=== PATIENT | male | born 1980 | race Caucasian/White ===

== ENCOUNTER 2018-02-24 08:27 | Day surgery (SDC) | payer OTHER ==
[2018-02-19 14:50] VITALS: BMI 30.7
[~2018-02-24 08:27] MED LIST: LACTATED RINGERS 1,000 ML IV SCH; LIDOCAINE 1% 20 ML VIAL (10MG/ML) FOR IV START INTRADERMA PRN
[2018-02-24 08:51] VITALS: TEMP 97.6
[2018-02-24] MEDS ORDERED: PROPOFOL 10 MG/ML 20 ML VIAL IV ONE (09:08)
[2018-02-24] MEDS ORDERED: LIDOCAINE 1% INJ 10MG/ML (20 ML MDV) ONE (09:08)
--- NOTE | 2018-02-24 09:13 | P.GSHP ---
History of Present Illness H&P Date: 02/24/18 Chief Complaint: Hemorrhoids This is a 38-year-old male presents today for Losee. Patient issues with hemorrhoids and anal pain. Past Medical History Past Medical History: Fibromyalgia, GERD/Reflux, Hypertension Additional Past Medical History / Comment(s): back pain, hemorrhoids History of Any Multi-Drug Resistant Organisms: None Reported Past Surgical History: Orthopedic Surgery Additional Past Surgical History / Comment(s): rt arm surgery Past Anesthesia/Blood Transfusion Reactions: No Reported Reaction Smoking Status: Current every day smoker - Past Family History Father Family Medical History: Coronary Artery Disease (CAD) Additional Family Medical History / Comment(s): triple bypass Medications and Allergies Home Medications Medication Instructions Recorded Confirmed Type DULoxetine HCL [Cymbalta] 60 mg PO DAILY 07/10/15 02/24/18 History Naproxen 500 mg PO Q12HR 07/10/15 02/24/18 History Pregabalin [Lyrica] 300 mg PO BID 07/10/15 02/24/18 History ARIPiprazole [Abilify] 5 mg PO DAILY 02/19/18 02/24/18 History Aspirin [Adult Low Dose Aspirin EC] 81 mg PO DAILY 02/19/18 02/24/18 History HYDROcodone/APAP 10-325MG [[place] 1 tab PO BID 02/19/18 02/24/18 History 10-325] Hydrochlorothiazide [Hydrodiuril] 25 mg PO DAILY 02/19/18 02/24/18 History Allergies Allergy/AdvReac Type Severity Reaction Status Date / Time No Known Allergies Allergy Verified 02/24/18 08:50 Surgical - Exam Vital Signs Temp Pulse Resp BP Pulse Ox 97.6 F 100 16 136/89 97 02/24/18 08:50 02/24/18 08:50 02/24/18 08:50 02/24/18 08:50 02/24/18 08:50 - General well developed, well nourished, no distress - Eyes PERRL - ENT normal pinna - Neck no masses - Respiratory normal expansion - Cardiovascular Rhythm: regular - Abdomen Abdomen: soft, non tender - Rectum Hemorrhoids Assessment and Plan Assessment: History of pain. Hemorrhoids. We'll perform colonoscopy.
--- NOTE | 2018-02-24 09:28 | P.OP ---
Date of Procedure: 02/24/18 Preoperative Diagnosis: Hemorrhoids Postoperative Diagnosis: Mild external hemorrhoids Sigmoid colon inflammation Diverticulosis Procedure(s) Performed: Colonoscopy Anesthesia: MAC Surgeon: Shalom Godfrey Pathology: other (Sigmoid colon biopsy) Condition: stable Disposition: PACU Description of Procedure: The patient was placed on the endoscopy table in the lateral position. He received IV sedation. Digital rectal exam was performed which revealed mild internal hemorrhoids. The flexible colonoscope was then placed patient anus passed throughout the entire colon. The ileocecal valve was visualized. The cecum, ascending and transverse colon appeared normal. In the descending colon was a few scattered diverticula. In the sigmoid colon there was more diverticula seen. There is evidence of submucosal phonation. This area is biopsied. Scope was then brought back the rectum and this appeared normal. Scope was withdrawn through the anus and there is minimal internal hemorrhoids. Scope was withdrawn for patient..
[2018-02-24 10:02] VITALS: BP 134/81; PULSE 88; RESP 16
== END 2018-02-24 10:10 | disposition home or self-care (01) ==
LOC: ORWHC2ENDO 08:27
PROVIDERS: ATTEND Surgery
DX: K64.4 Residual hemorrhoidal skin tags (principal); K64.8 Other hemorrhoids; K57.30 Diverticulosis of large intestine without perforation or abscess without bleeding; M79.7 Fibromyalgia; K21.9 Gastro-esophageal reflux disease without esophagitis; I10 Essential (primary) hypertension; Z79.1 Long term (current) use of non-steroidal anti-inflammatories (NSAID); Z79.82 Long term (current) use of aspirin; Z79.891 Long term (current) use of opiate analgesic; Z79.899 Other long term (current) drug therapy; F17.210 Nicotine dependence, cigarettes, uncomplicated
CPT/HCPCS: 88305; 45380; J2001; J2704

== ENCOUNTER 2019-05-20 11:52 | Day surgery (SDC) | payer OTHER ==
[2019-05-17 15:00] VITALS: BMI 30.7
[~2019-05-20 11:52] MED LIST changes: -LIDOCAINE 1% 20 ML VIAL (10MG/ML) FOR IV START INTRADERMA PRN
[2019-05-20] MEDS ORDERED: LIDOCAINE 1% 20 ML VIAL (10MG/ML) FOR IV START INTRADERMA ONE (12:15)
[2019-05-20 12:27] VITALS: RESP 16; TEMP 97.4
[2019-05-20] MEDS ORDERED: PROPOFOL 10 MG/ML 20 ML VIAL IV ONE (12:44)
[2019-05-20] MEDS ORDERED: LIDOCAINE 1% INJ 10MG/ML (20 ML MDV) ONE (12:44)
--- NOTE | 2019-05-20 13:02 | P.GSHP ---
History of Present Illness H&P Date: 05/20/19 Chief Complaint: . GERD GI bleed Is a 39-year-old male who presents today for EGD colonoscopy. Patient's had issues with GERD and GI bleed. Past Medical History Past Medical History: GERD/Reflux, Hyperlipidemia, Hypertension, Osteoarthritis (OA), Pneumonia Additional Past Medical History / Comment(s): hemorrhoids, recent blood in stool, diverticulitis, degenerative disks, scoliosis, History of Any Multi-Drug Resistant Organisms: None Reported Past Surgical History: Orthopedic Surgery Additional Past Surgical History / Comment(s): colonoscopy, rt shoulder surgery to remove bone spur, Past Anesthesia/Blood Transfusion Reactions: No Reported Reaction Smoking Status: Current every day smoker - Past Family History Father Family Medical History: Coronary Artery Disease (CAD) Additional Family Medical History / Comment(s): triple bypass Mother Family Medical History: No Reported History Medications and Allergies Home Medications Medication Instructions Recorded Confirmed Type DULoxetine HCL [Cymbalta] 60 mg PO W/SUPPER 07/10/15 05/17/19 History Naproxen 500 mg PO Q12HR 07/10/15 05/17/19 History ARIPiprazole [Abilify] 5 mg PO W/SUPPER 02/19/18 05/17/19 History Aspirin [Adult Low Dose Aspirin EC] 81 mg PO HS 02/19/18 05/17/19 History HYDROcodone/APAP 10-325MG [[place] 1 tab PO Q6HR PRN 02/19/18 05/17/19 History 10-325] Hydrochlorothiazide [Hydrodiuril] 25 mg PO DAILY 02/19/18 05/17/19 History Atorvastatin [Lipitor] 40 mg PO HS 05/17/19 05/17/19 History Calcium Carbonate [Tums] 500 mg PO DIRECTED PRN 05/17/19 05/17/19 History amLODIPine [Norvasc] 5 mg PO HS 05/17/19 05/17/19 History Allergies Allergy/AdvReac Type Severity Reaction Status Date / Time No Known Allergies Allergy Verified 05/17/19 14:46 Surgical - Exam Vital Signs Temp Pulse Resp BP Pulse Ox 97.4 F L 96 16 145/89 97 05/20/19 12:26 05/20/19 12:26 05/20/19 12:05/20/19 12:05/20/19 12:26 - General well developed - Eyes PERRL - ENT normal pinna - Neck no masses - Respiratory normal expansion - Cardiovascular Rhythm: regular - Abdomen Abdomen: soft, non tender Assessment and Plan Assessment: GERD, GI bleed. We'll perform EGD
--- NOTE | 2019-05-20 13:05 | P.OP ---
Date of Procedure: 05/20/19 Preoperative Diagnosis: GERD GI bleed Postoperative Diagnosis: Antral gastritis Esophagitis Internal hemorrhoids Procedure(s) Performed: EGD Colonoscopy Anesthesia: MAC Surgeon: Shalom Godfrey Pathology: other (Antrum, esophagus) Condition: stable Disposition: PACU Description of Procedure: The patient's placed on the endoscopy table. He received IV sedation. The gastric was placed oropharynx passed in the esophagus and into the stomach. Scope was then placed through the pylorus. The first and second portion of the duodenum appeared normal. Scope was then brought back and this appeared mildly inflamed. A biopsies performed. The scope was then retroflexed and the remainder some appeared normal. The GE junction was at 47 is. There was no significant hiatal hernia. The distal esophagus appeared inflamed. A biopsies performed. The proximal esophagus appeared normal. The scope was then withdrawn from patient. Next digital rectal exam was performed which revealed internal hemorrhoids. Flexible colonoscope was then placed patient anus passed rotator colon. The ileocecal valve was incised. The cecum, ascending and transverse colon appeared normal. The descending and sigmoid colon appeared normal. The scope was then brought back the rectum this appeared normal. Scope Patient.
[2019-05-20 13:17] VITALS: BP 136/89; PULSE 81
== END 2019-05-20 13:40 | disposition home or self-care (01) ==
LOC: ORWHC2ENDO 11:52
PROVIDERS: ATTEND Surgery
DX: K21.0 Gastro-esophageal reflux disease with esophagitis (principal); K29.50 Unspecified chronic gastritis without bleeding; K64.8 Other hemorrhoids; F31.9 Bipolar disorder, unspecified; J42 Unspecified chronic bronchitis; E78.5 Hyperlipidemia, unspecified; M19.90 Unspecified osteoarthritis, unspecified site; K64.4 Residual hemorrhoidal skin tags; I10 Essential (primary) hypertension; M51.36 Other intervertebral disc degeneration, lumbar region; E66.9 Obesity, unspecified; K05.6 Periodontal disease, unspecified; E78.00 Pure hypercholesterolemia, unspecified; M54.30 Sciatica, unspecified side; F17.210 Nicotine dependence, cigarettes, uncomplicated; Z79.2 Long term (current) use of antibiotics; Z79.899 Other long term (current) drug therapy; Z87.01 Personal history of pneumonia (recurrent); Z82.49 Family history of ischemic heart disease and other diseases of the circulatory system; Z79.82 Long term (current) use of aspirin; Z79.1 Long term (current) use of non-steroidal anti-inflammatories (NSAID); Z68.29 Body mass index [BMI] 29.0-29.9, adult
CPT/HCPCS: 88305; 45378; 43239; J2001; J2704

== ENCOUNTER → 2019-06-02 | Outpatient (CLI) | payer OTHER | END | disposition home or self-care (01) | LOC: LABPAT 14:37 | PROVIDERS: ATTEND Surgery | DX: Z01.818 Encounter for other preprocedural examination (principal); K21.0 Gastro-esophageal reflux disease with esophagitis | CPT/HCPCS: 36415; 85025; 86850; 86900; 86901 ==

== ENCOUNTER → 2019-08-01 | Outpatient (CLI) | payer OTHER | END | disposition home or self-care (01) | LOC: LABWHC1 08:39 | PROVIDERS: ATTEND Surgery | DX: U07.1 COVID-19 (principal) | CPT/HCPCS: 87635 ==

== ENCOUNTER → 2019-08-22 | Outpatient (CLI) | payer OTHER | END | disposition home or self-care (01) | LOC: LABWHC1 11:51 | PROVIDERS: ATTEND Surgery | DX: Z11.59 Encounter for screening for other viral diseases (principal) ==

== ENCOUNTER 2019-08-24 08:10 | Inpatient (IN) | payer OTHER ==
[~2019-08-24 08:10] MED LIST changes: +DEXAMETHASONE SOD PHOSPHATE 10 MG/ML 1 ML VIAL IV ONE; +HYDROmorphone 0.5 MG/0.5 ML SYRINGE IVP PRN; -LACTATED RINGERS 1,000 ML IV SCH; +LIDOCAINE 1% (10MG/ML) FOR IV START INTRADERMA PRN
[2019-08-24] MEDS: LACTATED RINGERS 1,000 ML IV SCH (09:05)
[2019-08-24] MEDS: ONDANSETRON 4 MG/2 ML VIAL IVP ONE ×2 (09:08→13:36)
[2019-08-24] MEDS: HEPARIN SODIUM,PORCINE 5,000 UNIT/ML 1 ML VIAL SQ ONE ×2 (09:18→13:36)
--- NOTE | 2019-08-24 09:22 | P.GSHP ---
History of Present Illness H&P Date: 08/24/19 Chief Complaint: GERD This a 39-year-old male referred from [facility].The patient has had long-standing problems with reflux esophagitis. The patient underwent recent EGD is found have evidence of esophagitis. Patient has been well informed on the procedure of laparoscopic Holden fundoplication. The patient is aware the risk of the conversion to the open procedure, risk of injury to the stomach, david er and spleen. The patient is also a risk of recurrent GERD and dysphagia symptoms. The patient understands there is a postoperative diet of full liquids for 2 weeks after surgery. Past Medical History Past Medical History: GERD/Reflux, Hyperlipidemia, Hypertension, Osteoarthritis (OA), Pneumonia Additional Past Medical History / Comment(s): hx hemorrhoids, occasional blood in stool, diverticulitis, degenerative disks, scoliosis, History of Any Multi-Drug Resistant Organisms: None Reported Past Surgical History: Orthopedic Surgery Additional Past Surgical History / Comment(s): colonoscopy,EGD, rt shoulder surgery to remove bone spur, Past Anesthesia/Blood Transfusion Reactions: No Reported Reaction Smoking Status: Current every day smoker - Past Family History Father Family Medical History: Coronary Artery Disease (CAD) Additional Family Medical History / Comment(s): triple bypass Mother Family Medical History: No Reported History Medications and Allergies Home Medications Medication Instructions Recorded Confirmed Type DULoxetine HCL [Cymbalta] 60 mg PO W/SUPPER 07/10/15 08/24/19 History Naproxen 500 mg PO Q12HR 07/10/15 08/24/19 History ARIPiprazole [Abilify] 5 mg PO W/SUPPER 02/19/18 08/24/19 History Aspirin [Adult Low Dose Aspirin EC] 81 mg PO HS 02/19/18 08/24/19 History HYDROcodone/APAP 10-325MG [[place] 1 tab PO Q6HR PRN 02/19/18 08/24/19 History 10-325] Hydrochlorothiazide [Hydrodiuril] 25 mg PO QAM 02/19/18 08/24/19 History Atorvastatin [Lipitor] 40 mg PO HS 05/17/19 08/24/19 History Calcium Carbonate [Tums] 500 mg PO DIRECTED PRN 05/17/19 08/24/19 History amLODIPine [Norvasc] 5 mg PO HS 05/17/19 08/24/19 History Cyclobenzaprine [Flexeril] 10 mg PO HS 08/22/19 08/24/19 History Varenicline [Chantix Continuing 1 mg PO BID 08/22/19 08/24/19 History Pack] Allergies Allergy/AdvReac Type Severity Reaction Status Date / Time No Known Allergies Allergy Verified 08/24/19 08:37 Surgical - Exam Vital Signs Temp Pulse Resp BP Pulse Ox 97.9 F 102 H 16 162/105 99 08/24/19 08:31 08/24/19 08:31 08/24/19 08:31 08/24/19 08:31 08/24/19 08:31 - General well developed, well nourished, no distress - Eyes PERRL - ENT normal pinna - Neck no masses - Respiratory normal expansion - Cardiovascular Rhythm: regular - Abdomen Abdomen: soft, non tender Results - Labs 08/24/19 08:55 Diabetes panel 08/24/19 Range/Units 08:55 Potassium 4.3 (3.5-5.1) mmol/L Pituitary panel 08/24/19 Range/Units 08:55 Potassium 4.3 (3.5-5.1) mmol/L Adrenal panel 08/24/19 Range/Units 08:55 Potassium 4.3 (3.5-5.1) mmol/L Assessment and Plan Assessment: GERD. We'll perform laparoscopic Holden fundoplication.
[2019-08-24] MEDS ORDERED: NEOSTIGMINE 1 MG/ML 10 ML VIAL ONE (09:50)
[2019-08-24] MEDS ORDERED: GLYCOPYRROLATE 0.2 MG/ML 2 ML VIAL ONE (09:50)
[2019-08-24] MEDS ORDERED: fentaNYL (PF) 50 MCG/ML 2 ML AMP ONE (09:50)
[2019-08-24] MEDS ORDERED: SUCCINYLCHOLINE CHLORIDE 100 MG/5 ML SYR IV ONE (09:50)
[2019-08-24] MEDS ORDERED: MIDAZOLAM 2 MG/2 ML VIAL ONE (09:50)
[2019-08-24] MEDS ORDERED: HYDROmorphone (PF) 1 MG/ML ONE (09:50)
[2019-08-24] MEDS ORDERED: KETOROLAC 30 MG/ML 1 ML VIAL ONE (09:50)
[2019-08-24] MEDS ORDERED: LIDOCAINE 1% INJ 10MG/ML (20 ML MDV) ONE (09:50)
[2019-08-24] MEDS ORDERED: ROCURONIUM BROMIDE 10 MG/ML 5 ML VIAL IV ONE (09:50)
[2019-08-24] MEDS ORDERED: PROPOFOL 10 MG/ML 20 ML VIAL IV ONE (09:50)
[2019-08-24] MEDS ORDERED: LIDOCAINE 1%/EPI 1:200,000 MPF 10 ML VIAL SQ ONE ×2 (10:10)
[2019-08-24] MEDS ORDERED: ONDANSETRON 4 MG/2 ML VIAL IVP PRN (11:03)
--- NOTE | 2019-08-24 11:03 | P.OP ---
Date of Procedure: 08/24/19 Preoperative Diagnosis: GERD Postoperative Diagnosis: GERD Procedure(s) Performed: Laparoscopic Holden fundal plication Anesthesia: LUIS CARLOS Surgeon: Shalom Godfrey Estimated Blood Loss (ml): 5 Pathology: none sent Condition: stable Disposition: PACU Description of Procedure: HarThe patient was placed on the operating table in the supine position. The patient received general anesthesia. And was placed in dorsal lithotomy position. The patient was prepped and draped in the usual sterile fashion. The skin incision sites were anesthetized with 1% local Xylocaine. The skin was incised in the left periumbilical area and then using a blade less 5 mm trocar u nder direct visualization panel cavity was entered. After adequate insufflation the laparoscope was then placed into the peritoneal cavity. Next a 5 mm trochars placed in the right epigastric position. Another 5 millimeter trocar the right lateral position. Another 5 millimeter trocar in the left lateral position a 5 mm trocar is placed in the left epigastric position. And then the initial 5 mm trocar was exchanged for a 10 mm trocar. The left lateral lobe liver was retracted. The hernia was seen. The crural defect was then dissected using the Harmonic scissors device. A 360 crural dissection was performed the esophagus stomach was reduced back into the peritoneal Cavity. The crural defect was then closed using 2-0 Ethibond suture. Next the fundus of the stomach was mobilized using the Cecil scissors device. and then a 58-Tunisian bougie dilator was placed oropharynx passed into the esophagus and stomach the fundal plication wrap was then performed by grasping the fundus posteriorly and bringing it around the esophagus and stomach fundoplication was then performed using 2-0 Ethibond suture. Care was taken that the fundal location rested over top of the intra-abdominal esophagus. There was no injury seen to the stomach or esophagus. The dilator was then withdrawn. The abdomen was irrigated there is no bleeding seen. The trochars were then withdrawn and then skin incision sites were closed using 3-0 Monocryl suture Steri-Strips are applied. Patient thought procedure well and sent to recovery room in stable condition.
[2019-08-24] MEDS: METOCLOPRAMIDE 5 MG/ML 2 ML VIAL IVP SCH ×3 (13:57→23:14)
[2019-08-24] MEDS: HYDROmorphone 1 MG/ML 1 ML SYRINGE IVP PRN (14:01)
[2019-08-24] MEDS: D5-0.45% NACL WITH KCL 20MEQ/L 1,000 ML IV SCH ×2 (14:19→20:35)
--- NOTE | 2019-08-24 15:04 | FL ---
EXAMINATION TYPE: FL esophagus cervic/pharynx DATE OF EXAM: 08/24/2019 LIMITED UGI-ESOPHAGRAM: CLINICAL HISTORY: History of epigastric pain reflux per patient status post Rick fundoplication rodriguez rgery earlier today. TECHNIQUE: Limited esophagram is performed utilizing 20 oz of contrast. A total of 29 seconds of flu oroscopic time was utilized during procedure. Change spot images saved to PACS. FINDINGS: The patient swallowed contrast without difficulty or delay. Esophageal peristalsis and mo tility are within normal limits. There is initial satisfactory flow of contrast along the diaphragmat ic hiatus into the stomach, there is no evidence of contrast extravasation to suggest leak. No persis tent hiatal hernia is seen. Some contrast remains in distal esophagus with some distal reflux noted t owards the mid aspect of the esophagus. Patient however remains asymptomatic. IMPRESSION: No evidence of leak or significant obstruction status post Rick fundoplication surgery earlier today.
[2019-08-24] MEDS: FAMOTIDINE 20 MG/2 ML VIAL IV SCH (20:08)
[2019-08-25] MEDS: D5-0.45% NACL WITH KCL 20MEQ/L 1,000 ML IV SCH (04:33)
[2019-08-25] MEDS: LACTATED RINGERS 1,000 ML IV SCH (04:53)
[2019-08-25] MEDS: METOCLOPRAMIDE 5 MG/ML 2 ML VIAL IVP SCH (04:58)
[2019-08-25] MEDS: HYDROmorphone 1 MG/ML 1 ML SYRINGE IVP PRN (04:58)
[2019-08-25] MEDS: FAMOTIDINE 20 MG/2 ML VIAL IV SCH (06:53)
[2019-08-25 07:40] VITALS: BP 135/94; PULSE 115; RESP 17; TEMP 97.5
[2019-08-25] MEDS ORDERED: HYDROcodone/APAP 10-325MG 1 EACH TAB PO PRN (07:58)
[2019-08-25] MEDS ORDERED: ENOXAPARIN 40 MG/0.4 ML SYRINGE SQ SCH (09:00)
--- NOTE | 2019-08-25 12:24 | P.DS ---
Providers Date of admission: 08/24/19 08:10 Expected date of discharge: 08/25/19 Attending physician: Shalom Godfrey [facility] Course: 39-year-old male who underwent laparoscopic Holden fundoplication with Dr. Godfrey secondary to GERD. Patient did well postoperatively without any complications. Tolerating diet without nausea or vomiting. Pain is controlled on oral medications. Vital signs are stable. Patient stable for discharge home today. Please see EMR for further hospital course details. Discharge diagnosis 1. GERD, status post laparoscopic Holden fundoplication Nurse practitioner note has been reviewed by physician. Signing provider agrees with the documented findings, assessment, and plan of care. Plan - Discharge Summary Discharge Rx Participant: Yes New Discharge Prescriptions: Continue HYDROcodone/APAP 10-325MG [[place] 10-325] 1 tab PO Q6HR PRN PRN Reason: Pain No Action Naproxen 500 mg PO Q12HR DULoxetine HCL [Cymbalta] 60 mg PO W/SUPPER Hydrochlorothiazide [Hydrodiuril] 25 mg PO QAM ARIPiprazole [Abilify] 5 mg PO W/SUPPER Aspirin [Adult Low Dose Aspirin EC] 81 mg PO HS amLODIPine [Norvasc] 5 mg PO HS Atorvastatin [Lipitor] 40 mg PO HS Calcium Carbonate [Tums] 500 mg PO DIRECTED PRN PRN Reason: Heartburn Varenicline [Chantix Continuing Pack] 1 mg PO BID Cyclobenzaprine [Flexeril] 10 mg PO HS Discharge Medication List DULoxetine HCL [Cymbalta] 60 mg PO W/SUPPER 07/10/15 [History] Naproxen 500 mg PO Q12HR 07/10/15 [History] ARIPiprazole [Abilify] 5 mg PO W/SUPPER 02/19/18 [History] Aspirin [Adult Low Dose Aspirin EC] 81 mg PO HS 02/19/18 [History] HYDROcodone/APAP 10-325MG [[place] 10-325] 1 tab PO Q6HR PRN 02/19/18 [History] Hydrochlorothiazide [Hydrodiuril] 25 mg PO QAM 02/19/18 [History] Atorvastatin [Lipitor] 40 mg PO HS 05/17/19 [History] Calcium Carbonate [Tums] 500 mg PO DIRECTED PRN 05/17/19 [History] amLODIPine [Norvasc] 5 mg PO HS 05/17/19 [History] Cyclobenzaprine [Flexeril] 10 mg PO HS 08/22/19 [History] Varenicline [Chantix Continuing Pack] 1 mg PO BID 08/22/19 [History] Follow up Appointment(s)/Referral(s): Shalom Godfrey MD [STAFF PHYSICIAN] - 09/08/19 1:15 pm Patient Instructions/Handouts: *Surgery [facility] - ([facility]) Lap Holden Fundiplication Post-Op Instructions Activity/Diet/Wound Care/Special Instructions: No driving while taking [place] No lifting over 10 pounds You may shower. No soaking or tub baths Very light activity until you are reevaluated at your follow up appointment with your surgeon No straws or carbonated beverages Full liquid/soft diet for 2 weeks Discharge Disposition: HOME SELF-CARE
== END 2019-08-25 10:40 | disposition home or self-care (01) | DRG 328 ==
LOC: 2ORMAIN 08:10 → 4SSUR 13:32
PROVIDERS: ADMIT Surgery; ATTEND Surgery
PROC: 0BQT4ZZ Repair Diaphragm, Percutaneous Endoscopic Approach (ICD-10-PCS; 2019-08-24)
PROC: 0DV44ZZ Restriction of Esophagogastric Junction, Percutaneous Endoscopic Approach (ICD-10-PCS; principal; 2019-08-24 09:10)
DX: K21.0 Gastro-esophageal reflux disease with esophagitis (principal); K44.9 Diaphragmatic hernia without obstruction or gangrene; I10 Essential (primary) hypertension; E78.5 Hyperlipidemia, unspecified; M19.90 Unspecified osteoarthritis, unspecified site; M41.9 Scoliosis, unspecified; M51.36 Other intervertebral disc degeneration, lumbar region; F17.210 Nicotine dependence, cigarettes, uncomplicated; Z79.899 Other long term (current) drug therapy; Z79.82 Long term (current) use of aspirin; Z87.19 Personal history of other diseases of the digestive system; Z87.01 Personal history of pneumonia (recurrent); Z98.890 Other specified postprocedural states; Z82.49 Family history of ischemic heart disease and other diseases of the circulatory system
CPT/HCPCS: 74210; 84132

== ENCOUNTER → 2020-09-20 | Outpatient (CLI) | payer OTHER | END | disposition home or self-care (01) | LOC: LABPAT 10:55 | PROVIDERS: ATTEND Surgery | DX: Z53.9 Procedure and treatment not carried out, unspecified reason (principal) ==

== ENCOUNTER 2020-09-26 06:27 | Day surgery (SDC) | payer OTHER ==
[2020-09-21 10:44] VITALS: BMI 29.4
[~2020-09-26 06:27] MED LIST changes: +ACETAMINOPHEN TAB 500 MG TAB PO PRN; -DEXAMETHASONE SOD PHOSPHATE 10 MG/ML 1 ML VIAL IV ONE; +HEPARIN SODIUM,PORCINE/PF 5,000 UNIT/0.5 ML SYRINGE SQ PRN; -HYDROmorphone 0.5 MG/0.5 ML SYRINGE IVP PRN; +LACTATED RINGERS 1,000 ML IV SCH
[2020-09-26] MEDS ORDERED: ONDANSETRON 4 MG/2 ML VIAL IVP ONE (07:00)
[2020-09-26] MEDS ORDERED: DEXAMETHASONE SOD PHOSPHATE 4 MG/ML 1 ML VIAL IV ONE (07:00)
[2020-09-26] MEDS ORDERED: MIDAZOLAM 2 MG/2 ML VIAL IV ONE (07:28)
[2020-09-26] MEDS ORDERED: SUCCINYLCHOLINE CHLORIDE 100 MG/5 ML SYR IV ONE (07:54)
[2020-09-26] MEDS ORDERED: fentaNYL (PF) 50 MCG/ML 2 ML AMP ONE (07:54)
[2020-09-26] MEDS ORDERED: PROPOFOL 10 MG/ML 20 ML VIAL IV ONE (07:54)
[2020-09-26] MEDS ORDERED: ROPIVACAINE 5 MG/ML 30 ML VIAL ONE (07:54)
[2020-09-26] MEDS ORDERED: hydrALAZINE HCL 20 MG/ML 1 ML VIAL ONE (07:54)
[2020-09-26] MEDS ORDERED: HYDROmorphone (PF) 1 MG/ML ONE (07:54)
[2020-09-26] MEDS ORDERED: DEXAMETHASONE SOD PHOSPHATE 4 MG/ML 1 ML VIAL ONE (07:54)
[2020-09-26] MEDS ORDERED: GLYCOPYRROLATE 0.2 MG/ML 2 ML VIAL ONE (07:54)
[2020-09-26] MEDS ORDERED: NEOSTIGMINE 1 MG/ML 10 ML VIAL ONE (07:54)
[2020-09-26] MEDS ORDERED: ROCURONIUM 10 MG/ML (5 ML VIAL) IV ONE (07:54)
[2020-09-26] MEDS ORDERED: LIDOCAINE 1% INJ 10MG/ML (20 ML MDV) ONE (07:54)
[2020-09-26] MEDS ORDERED: KETAMINE 10 MG/ML 20 ML VIAL ONE (07:54)
[2020-09-26] MEDS ORDERED: MIDAZOLAM 2 MG/2 ML VIAL ONE (07:54)
[2020-09-26] MEDS ORDERED: KETOROLAC 15 MG/ML 1 ML VIAL ONE (07:54)
--- NOTE | 2020-09-26 08:00 | P.GSHP ---
History of Present Illness H&P Date: 09/26/20 Chief Complaint: Umbilical hernia This a 40-year-old male who presents today for laparoscopic robotic-assisted repair of umbilical hernia. Patient developed a tender mass in the umbilicus. Past Medical History Past Medical History: Hyperlipidemia, Hypertension, Osteoarthritis (OA), Pneumonia Additional Past Medical History / Comment(s): hemorrhoids, diverticulitis, degenerative disks, scoliosis History of Any Multi-Drug Resistant Organisms: None Reported Past Surgical History: Hernia Repair, Orthopedic Surgery Additional Past Surgical History / Comment(s): rt shoulder surgery to remove bone spur, Holden Fundoplication. fully vaccinated for Covid Past Anesthesia/Blood Transfusion Reactions: No Reported Reaction Smoking Status: Current every day smoker - Past Family History Father Family Medical History: Coronary Artery Disease (CAD) Additional Family Medical History / Comment(s): triple bypass Mother Family Medical History: Coronary Artery Disease (CAD) Medications and Allergies Home Medications Medication Instructions Recorded Confirmed Type DULoxetine HCL [Cymbalta] 60 mg PO W/SUPPER 07/10/15 09/26/20 History ARIPiprazole [Abilify] 5 mg PO W/SUPPER 02/19/18 09/26/20 History Aspirin [Adult Low Dose Aspirin EC] 81 mg PO QAM 02/19/18 09/26/20 History HYDROcodone/APAP 10-325MG [[place] 1 tab PO BID 02/19/18 09/26/20 History 10-325] Atorvastatin [Lipitor] 40 mg PO QAM 05/17/19 09/26/20 History amLODIPine [Norvasc] 5 mg PO QAM 05/17/19 09/26/20 History Cyclobenzaprine [Flexeril] 10 mg PO W/SUPPER 08/22/19 09/26/20 History Allergies Allergy/AdvReac Type Severity Reaction Status Date / Time No Known Allergies Allergy Verified 09/26/20 07:08 Surgical - Exam Vital Signs Temp Pulse Resp BP Pulse Ox 97.1 F L 94 16 150/88 98 09/26/20 06:56 09/26/20 06:56 09/26/20 06:56 09/26/20 06:56 09/26/20 06:56 - General well developed, well nourished, no distress - Eyes PERRL - ENT normal pinna - Neck no masses - Respiratory normal expansion - Cardiovascular Rhythm: regular - Abdomen Abdomen: soft, non tender Hernia: umbilical Assessment and Plan Assessment: 2 cm umbilical hernia. We'll perform laparoscopic robotic-assisted repair.
[2020-09-26] MEDS ORDERED: BUPIVACAINE (PF) 0.25% 30 ML VIAL SQ ONE ×2 (08:40)
--- NOTE | 2020-09-26 08:56 | P.OP ---
Date of Procedure: 09/26/20 Preoperative Diagnosis: Incarcerated umbilical hernia Postoperative Diagnosis: Incarcerated umbilical hernia Procedure(s) Performed: Laparoscopic robotic-assisted repair of incarcerated umbilical hernia Partial omentectomy Anesthesia: LUIS CARLOS Surgeon: Shalom Godfrey Estimated Blood Loss (ml): 5 Pathology: other (Omentum) Condition: stable Disposition: PACU Description of Procedure: The patient was placed on the operating table in the supine position. He received general anesthesia. His abdomen was prepped and draped usual fashion. Using a 5 mm optical trocar under direct visualization the peritoneal cavity was entered in the left upper quadrant. The abdomen was then insufflated. The laparoscope was placed back into the perineal cavity. Next a 8 mm robotic trocar was placed in the left lower quadrant and a 12 mm robotic trocar was placed in the left lateral position. The original 5 mm trocar was exchanged for a 8 mm robotic trocar. The patient's placed in the left side up position. And the patient was undocked the robot. The umbilical hernia was visualized. Using hook cautery the peritoneum over the umbilical hernia was excised. Incarcerated omentum and hernia sac was dissected free with left cautery and sent to pathology. The fascial opening was repaired using 0V LOC suture. Next a piece of 11 cm round ventral light ST mesh was placed into the. Cavity and secured with 2 OV lock suture. The patient was undocked the robot. The needles were retrieved. The fascia of the 12 mm trocar site was closed with 0 Ethibond suture. Skin was closed interrupted 3-0 Monocryl suture. Dermabond dressings was applied. Patient top procedure well and was sent to recovery room stable condition.
[2020-09-26 09:24] VITALS: TEMP 98
[2020-09-26] MEDS ORDERED: LACTATED RINGERS 1,000 ML IV ONE (09:36)
[2020-09-26 10:26] VITALS: BP 137/87; PULSE 125; RESP 20
--- NOTE | 2020-09-26 13:48 | P.ANPRN ---
Procedure Note - Anesthesia - Nerve Block Performed Bilateral Rectus Abdominis Single Time Out Performed: Yes Date of Procedure: 09/26/20 Procedure Start Time: : Procedure Stop Time: :32 Location of Patient: PreOp Indication: Acute Post-Operative Pain, Requested by Surgeon Sedation Type: Sedate with meaningful contact maintained Preparation: Sterile Prep Position: Supine Needle Types: Pajunk Needle Gauge: 21 Ultrasound used to visualize needle placement: Yes Ultrasound used to observe medication spread: Yes Resistance on Injection: Normal Image Stored and Saved: Yes Events: Uneventful and Well Tolerated (ropi .5% 20cc plus dexamethasone 4mg bilaterally)
== END 2020-09-26 10:52 | disposition home or self-care (01) ==
LOC: OR 06:27
PROVIDERS: ATTEND Surgery
DX: K42.0 Umbilical hernia with obstruction, without gangrene (principal); I10 Essential (primary) hypertension; F32.9 Major depressive disorder, single episode, unspecified; G89.29 Other chronic pain; F17.210 Nicotine dependence, cigarettes, uncomplicated; Z79.899 Other long term (current) drug therapy
CPT/HCPCS: 64999; 86900; 86901; 86850; 88302; 36415; 49653; C1781; J2250; J0360; J1100; J2710; J0690; J2405; J2001; J3010; J1170; J2795; J1885; J0330; J2704; J1644

== ENCOUNTER → 2020-11-21 | Outpatient (CLI) | payer OTHER ==
--- NOTE | 2020-11-21 07:04 | MR ---
EXAMINATION TYPE: MR lumbar spine wo con DATE OF EXAM: 11/21/2020 6:40 AM COMPARISON: 12/27/2015 HISTORY: Low back pain Multiplanar, MultiSpin echo imaging of the lumbar spine was performed. L1-L2: Normal disc appearance without desiccation. No herniation, protrusion or disc bulging. No ca nal stenosis is present. Foramina are patent bilaterally. L2-L3: Normal disc appearance without desiccation. No herniation, protrusion or disc bulging. No ca nal stenosis is present. Foramina are patent bilaterally. L3-L4: Normal disc appearance without desiccation. No herniation, protrusion or disc bulging. No ca nal stenosis is present. Foramina are patent bilaterally. L4-L5: Mild disc desiccation. Minimal posterior disc bulge. No herniation protrusion or central steno sis at this time. Mild facet joint arthropathy. No evidence for foraminal encroachment. L5-S1: Moderate to severe disc desiccation. Posterocentral subligamentous small disc herniation persi sts with mild effacement of the ventral thecal sac. No evidence for lateral recess stenosis or centra l stenosis. Foramina are patent bilaterally. Lumbar segments are intact. No paraspinal masses are identified. Conus medullaris has a normal appe arance. IMPRESSION: 1. Stable degenerative disc disease and mild subligamentous posterocentral disc herniation at L5-S1.
== END | disposition home or self-care (01) ==
LOC: RADMRIMAIN 06:03
PROVIDERS: ATTEND Family Medicine
DX: M51.37 Other intervertebral disc degeneration, lumbosacral region (principal); M51.27 Other intervertebral disc displacement, lumbosacral region
CPT/HCPCS: 72148

== ENCOUNTER → 2023-02-17 | Outpatient (CLI) | payer OTHER ==
--- NOTE | 2023-02-17 14:12 | CT ---
EXAMINATION TYPE: CT cervical spine wo con DATE OF EXAM: 02/17/2023 COMPARISON: None HISTORY: Cervicalgia, pain in arms and hands especially RT side CT DLP: 711.[address] of the cervical spine was performed with bone and soft tissue window settings submitted . Coronal and sagittal reconstruction is obtained. There is normal alignment and prevertebral soft tissues. I do not see evidence for fracture or subluxation. C2-3, C3-4 and C4-5: Within normal limits C5-6: Moderate degenerative disc space narrowing. Posterior disc bulge with partial encapsulating spu r resulting in disc endplate complex. Effacement of the ventral thecal sac. No evidence for central s tenosis. Degenerative changes of the cervical apophyseal joints resulting in mild bilateral neural fo raminal encroachment. C6-7: Moderate to severe degenerative disc space narrowing. Posterior disc bulge with partial encapsu lating spur resulting in disc endplate complex. Effacement of the ventral thecal sac. No evidence for central stenosis. Degenerative changes of the cervical apophyseal joints resulting in mild bilateral neural foraminal encroachment. C7-T1: Within normal limits IMPRESSION: 1. Degenerative disc space narrowing with disc bulging spondylosis C5-6 and C6-7. Bilateral neural fo raminal encroachment.
== END | disposition home or self-care (01) ==
LOC: RADCTMAIN 13:46
PROVIDERS: ATTEND Orthopaedic Surgery
DX: M50.222 Other cervical disc displacement at C5-C6 level (principal); M50.223 Other cervical disc displacement at C6-C7 level; M47.812 Spondylosis without myelopathy or radiculopathy, cervical region
CPT/HCPCS: 72125

== ENCOUNTER → 2023-03-04 | Outpatient (CLI) | payer OTHER ==
[2023-03-04 13:42] LABS: INR 0.9 (<1.2); Prothrombin Time 9.8 sec (10.0-12.5)
[2023-03-04 19:18] LABS: Basophils # (A) 0.07 X 10*3/uL (0.00-0.10); Basophils % (A) 0.6 %; Eosinophils # (A) 0.06 X 10*3/uL (0.04-0.35); Eosinophils % (A) 0.5 %; HCT 49.4 % (39.6-50.0); HGB 16.1 g/dL (13.0-17.0); Lymphocytes # (A) 2.63 X 10*3/uL (0.90-5.00); MCH 33.2 pg (27.0-32.0); MCHC 32.6 g/dL (32.0-37.0); MCV 101.9 FL (80.0-97.0); Mean Platelet Volume 10.5 FL (9.5-12.2); Monocytes # (A) 0.61 X 10*3/uL (0.20-1.00); Monocytes % (A) 5.6 %; NRBC Per 100 WBC 0 X 10*3/uL (0.00-0.01); Neutrophils # (A) 7.55 X 10*3/uL (1.80-7.70); Neutrophils % (A) 68.9 %; Platelet Count 389 X 10*3/uL (140-440); RBC 4.85 X 10*6/uL (4.40-5.60); RDW 14.1 % (11.5-14.5); WBC 10.96 X 10*3/uL (4.50-10.00)
[2023-03-04 19:21] LABS: ALT 23 U/L (10-49); AST 19 U/L (14-35); Albumin 4.9 g/dL (3.8-4.9); Albumin/Globulin Ratio 1.69 Ratio (1.60-3.17); Alkaline Phosphatase 170 U/L (41-126); BUN/Creat Ratio 10.25 Ratio (12.00-20.00); Blood Urea Nitrogen 8.2 mg/dL (9.0-27.0); Calcium 9.8 mg/dL (8.7-10.3); Carbon Dioxide 21.2 mmol/L (21.6-31.8); Chloride 104 mmol/L (96-109); Globulin 2.9 g/dL (1.6-3.3); Glucose 93 mg/dL (70-110); Potassium 4.2 mmol/L (3.5-5.5); Sodium 141 mmol/L (135-145); Total Bilirubin 0.3 mg/dL (0.3-1.2); Total Protein 7.8 g/dL (6.2-8.2)
== END | disposition home or self-care (01) ==
LOC: LABPAT 11:51
PROVIDERS: ATTEND Orthopaedic Surgery
DX: Z01.812 Encounter for preprocedural laboratory examination (principal); Z22.322 Carrier or suspected carrier of Methicillin resistant Staphylococcus aureus; M47.812 Spondylosis without myelopathy or radiculopathy, cervical region; M54.12 Radiculopathy, cervical region
CPT/HCPCS: 80053; 85025; 85610; 85730; 86850; 86900; 86901; 87070

== ENCOUNTER 2023-03-12 10:47 | Day surgery (SDC) | payer OTHER ==
[2023-03-10 10:48] VITALS: BMI 28.7
[~2023-03-12 10:47] MED LIST changes: +DEXAMETHASONE SOD PHOSPHATE 4 MG/ML 1 ML VIAL IV ONE; +GABAPENTIN 300 MG CAP PO PRN; -HEPARIN SODIUM,PORCINE/PF 5,000 UNIT/0.5 ML SYRINGE SQ PRN; +HYDROmorphone 0.5 MG/0.5 ML SYRINGE IVP PRN; +ONDANSETRON 4 MG/2 ML VIAL IVP ONE; +ONDANSETRON 4 MG/2 ML VIAL IVP PRN; +TRANEXAMIC 1,000 MG/100ML-NACL 1,000 MG in SALINE 1 100ML.BAG IVPB PRN; +droPERidol 5 MG/2 ML VIAL IVP PRN
--- NOTE | 2023-03-12 11:23 | P.HPOR ---
History of Present Illness H&P Date: 03/04/23 .D:Date: 03/04/23 : 11:07am .T:Title: [facility] History and Physical Date of :82 [id number]: NKDA Age: 43 year Height: 5'9" Weight: 210 lbs BMI: 31.01 kg/m2 Occupation: Unemployed VAS: 8 Hand:Right Spine Surgery Risk Review Mr. Morataya is presenting for evaluation of neck and right upper extremity pain, right upper extremity numbness, tingling, and weakness. It was my pleasure to have seen and examined Mr. Morataya. In our visit today we have had a chance to go over subjective complaints, physical examination findings and treatments including the natural course history without intervention and various interventional options. The patients imaging demonstrates: XRay Cervical multiview was taken at [facility] on 11/13/22 of Cervical Spine: Re-reviewed with the patient in office today. there is reviewed demonstrate C6 to 7 spondylosis with severe collapse. There is trace anterolisthesis C5 on C6. Overall alignment is fairly well maintained mild facet arthrosis noted. No fracture no dislocation occipital cervical C1 2 joints appear stable MRI scancompleted at [facility] from10/31/2022 of Cervical Spine: Re-reviewed with the patient in office today. images reviewed demonstrate spondylosis C5 6 C6 7 with large disc herniation at C5-C6 causing severe foraminal stenosis as well as central stenosis bilaterally. There is a small amount of myomalacia which is started at this level due to contact with the cord of the disc herniation. There is cord draping over the large disc herniation at this level as well. No other fractures or dislocations noted On physical exam, Mr. Morataya demonstrates: A continued dull, ache-like pain thr oughout the neck that radiates down into the right upper extremity. The patient states that their right arm pain is associated with numbness and tingling. The patient notes pain, numbness, and tingling throughout the thumb and index finger of the right hand. The patient notes an intermittent sharp, shooting pain throughout the right upper extremity with any overhead activity. The patient states that their neck pain is exacerbated by prolonged activity. The patient reports experiencing moderate to severe sleep disturbances related to her ongoing pain and associated symptoms. I have explained to the patient that as their condition progresses it will cause further neurological deficits and eventual paralysis. Based on the patients imaging, physical exam, and the rapid progression and disabling nature of their symptoms, at this time I recommend surgery in the form of a: C5-6 total disc replacement. I discussed the risk and benefits of this procedure at length with Mr. Morataya. The patient agreed to considered pursuing the procedure abovementioned. Prior to surgery, she should follow up with her PCP (Cardio, ID, IM etc) for clearance. Questions were invited and answered, and the patient wishes to proceed as outlined below. Currently, I am recommendin.C5-6 total disc replacement 2.Review of surgical risks and benefits as well as an educational packet on the proposed surgical procedure. Risks: All surgical procedures come with inherent risks, including those related to positioning, anesthesia, intraoperative findings, and postoperative complications. It is important to understand that surgery does not come with any guarantee of a successful outcome as complications and adverse events are always possible. The patient was given a handout in office today discussing the surgical procedure and risks associated with the intervention, both of which were discussed with the patient. These risks include but are not limited to the following: * Experiencing same, different or even worse symptoms in back, neck, arms, or legs compared to before surgery. Requiring further surgery or other forms of treatment presently or at some time in the future at same or other levels of the intended spine surgery. On an extreme but fortunately relatively rare basis severe complication such as blindness, stroke, heart attack, temporary and/or permanent nerve injury, paralysis, coma, or may occur, sometimes without known explanation. Surgical complications may include but are not limited to risk of infection, fluid accumulation in the surgical dissection site, including a seroma or hematoma, that requires additional surgery, wound drainage, bleeding, new numbness or weakness, vision changes/loss, spinal fluid leakage, non-healing and/or infected incision, headaches, difficulty or inability to swallow, hoarseness, hemopneumothorax, pneumothorax, impotence, retrograde ejaculation, vaginal dryness; injury to nerves, spinal cord, blood vessels, lymphatics or other vital organs (i.e., bowel injury, injury to the great vessels); heterotopic bone formation; complications related to the hardware such as screws, rods, cages including misplaced hardware, device failure, instrumentation at the wrong spine level, hardware fracture/breakage, or hardware loosening; vertebral failure of the spinal column above or below the newly placed hardware; retained surgical instrumentations or devices and the need for further surgery. * Medical risks of the planned spine surgery include but are not limited to generalized Infections to the whole body or local areas outside of the surgical site (sepsis), heart attack, bleeding, anaphylaxis, meningitis, seizure, epilepsy, hearing loss, burn sellers, laceration of the head or other areas of the body, bruising, hypersensitivity of the skin, bladder over distension; allergic reaction; shoulder injury related to positioning; fat, blood and air clots to other areas of the body like heart, lungs, brain; failure of internal organs such as lungs, kidneys, liver and excessive bleed ing. If blood transfusions are necessary, note that transfusions may cause intolerance reactions such as anaphylaxis or other complex reactions. Despite best efforts, the results of spine surgery might not heal in terms of bone, soft tissues such as skin, fascia, ligaments, and joints. Additionally, in order to achieve best possible results, spine surgery may be carried out beyond the initially planned levels and involve decompression, fusion including insertion of hardware at levels other than the original intended area of surgical interest change some portions of the procedure in order to ensure the best possible outcomes. With spine surgery and spinal fusion, there are different off label uses of instrumentation (devices, implants and hardware) as well as biological substances (bone morphogenic proteins, demineralized bone matrix) as well as using extra bone from allograft sources (i.e. cadaver bone) or autograft (iliac crest bone, ribs, or the spine itself). The patient has been given information about these practices and their inherent risks and benefits. [facility] is an educational center that serves as a training facility for neurosurgical and orthopedic [employer] and Nursing students. Physician assistants are medically trained surgical providers who function in the outpatient, inpatient, and operating room setting under the direct supervision of the attending surgeon. [facility] has multiple operating rooms with single and overlapping rooms running daily. They currently function under the required guidelines as produced by the [facility] Finance Committee with regards to the overlapping rooms and will continue to comply with changes to this policy as they occur. The requirements include and are complied with as follows: (1) the critical portions of the overlapping rooms will not occur at the same time, (2) the attending physician will be physically present during the critical portions of the procedure and immediately available during the entire case, and (3) a back-up attending is designated should the primary attending not be immediately available. The patient has had a chance to review all the listed information, has been given print outs detailing this information, and has had all his/her questions answered to their satisfaction. It was my pleasure to have seen and examined Mr. Morataya. In our visit today we have had a chance to go over my understanding of our patient's current condition, the natural course history without intervention and various interventional options. Questions were invited and answered, and the patient wishes to proceed as outlined above. I have seen and examined the patient for 25 minutes and we have spent more than 50% of the time in repeat and detailed counseling about the patient's condition, its natural course history with out and as much as can be predicted with surgery and re-review of various surgical treatment options. In conclusion, Mr. Morataya requested we proceed with the above suggested surgery and are willing to accept risks and limitations of the suggested surgery as nature of the disease process and our best attempts at treatment for the condition. Thank you again for allowing us to be part of your patient's care. Please don't hesitate to contact me if you have any further questions. Follow-up: Post procedure Patient Education: (Informational booklet, instructions, etc) given at today's appointment: Yes .ED:Patient Education: Y Medications Reviewed: YES In our visit today Mr. Morataya and I have had a chance to go over my understanding of the patient's current condition, the natural course history without intervention and various interventional options. Questions were invited and answered, and the patient wishes to proceed as outlined above. I will be sure to keep you updated afterMr. Morataya returns here for further follow-up. Thank you again for your referral. Please do not hesitate to contact me if you have any further questions. Signed and authenticated by: Andi Hernandez [facility] [address], [address] [address] This message is confidential, intended only for the named recipient(s) and may contain information that is privileged or exempt from disclosure under applicable law. If you are not the intended recipient(s), you are notified that the dissemination, distribution or copying of this information is strictly prohibited. If you received this message in error, please notify the sender then delete this message. Patient verbalizes understanding of the information discussed. The above note was initiated by Micaela Lara, physician recording timber management assistant for Dr. Andi Zamarripa. This note has been reviewed by Dr. Zamarripa, who has made his personal changes and impressions for this document. CC: Denny Olea M.D. # SIGNED BY Andi Zamarripa (GOO)03/10/2023 02:44PM Past Medical History Past Medical History: GERD/Reflux, Hyperlipidemia, Hypertension, Musculoskeletal Disorder, Osteoarthritis (OA), Pneumonia Additional Past Medical History / Comment(s): Acid reflux resolved with surgery, internal hemorrhoids, diverticulitis, degenerative discs, scoliosis, headaches. History of Any Multi-Drug Resistant Organisms: None Reported Past Surgical History: Hernia Repair, Orthopedic Surgery Additional Past Surgical History / Comment(s): Colonoscopy, right shoulder surgery to remove bone spur, GERD surgery. Past Anesthesia/Blood Transfusion Reactions: No Reported Reaction Past Psychological History: Anxiety, Depression Smoking Status: Current every day smoker Past Alcohol Use History: None Reported Additional Past Alcohol Use History / Comment(s): Smoker since age 19, 1-1 1/2 ppd, last month down to 4 cigarettes a day. Past Drug Use History: Marijuana Additional Drug Use History / Comment(s): Daily Marijuana use, aware no use 24 hrs prior to procedure. - Past Family History Father Family Medical History: Coronary Artery Disease (CAD) Additional Family Medical History / Comment(s): Triple bypass. Mother Family Medical History: Coronary Artery Disease (CAD) Medications and Allergies Home Medications Medication Instructions Recorded Confirmed Type ARIPiprazole [Abilify] 5 mg PO QAM 02/19/18 03/12/23 History Aspirin [Adult Low Dose Aspirin EC] 81 mg PO QAM 02/19/18 03/12/23 History amLODIPine [Norvasc] 5 mg PO QAM 05/17/19 03/12/23 History Acetaminophen Tab [Tylenol Tab] 500 - 1,000 mg PO Q4-6H PRN 03/10/23 03/12/23 History Atorvastatin [Lipitor] 80 mg PO HS 03/10/23 03/12/23 History DULoxetine HCL [Cymbalta] 30 mg PO HS 03/10/23 03/12/23 History Ergocalciferol [Vitamin D2 (1250 1,250 mcg PO FR 03/10/23 03/12/23 History Mcg = 53530 Iu)] Allergies Allergy/AdvReac Type Severity Reaction Status Date / Time No Known Allergies Allergy Verified 03/12/23 11:15 Physical Examination Osteopathic Statement: *. No significant issues noted on an osteopathic structural exam other than those noted in the History and Physical/Consult.
[2023-03-12] MEDS ORDERED: TRANEXAMIC 1,000 MG/100ML-NACL PREMIX BAG ONE (13:30)
[2023-03-12] MEDS ORDERED: SUCCINYLCHOLINE CHLORIDE 200 MG/10 ML VIAL IV ONE (13:30)
[2023-03-12] MEDS ORDERED: fentaNYL (PF) 50 MCG/ML 2 ML AMP ONE (13:30)
[2023-03-12] MEDS ORDERED: NEOSTIGMINE 1 MG/ML 10 ML VIAL ONE (13:30)
[2023-03-12] MEDS ORDERED: ROCURONIUM 10 MG/ML (5 ML VIAL) IV ONE (13:30)
[2023-03-12] MEDS ORDERED: PROPOFOL 10 MG/ML 20 ML VIAL IV ONE (13:30)
[2023-03-12] MEDS ORDERED: GLYCOPYRROLATE 0.2 MG/ML 2 ML VIAL ONE (13:30)
[2023-03-12] MEDS ORDERED: LIDOCAINE 1% INJ 10MG/ML (20 ML MDV) ONE (13:30)
[2023-03-12] MEDS ORDERED: KETAMINE HCL IN 0.9 % NACL 50 MG/5 ML SYRINGE ONE (13:30)
[2023-03-12] MEDS ORDERED: MIDAZOLAM 2 MG/2 ML VIAL ONE (13:30)
[2023-03-12] MEDS ORDERED: THROMBIN (BOVINE) 5,000 UNIT VIAL TOPICAL ONE (14:02)
[2023-03-12] MEDS ORDERED: GELATIN SPONGE,ABSORB (LARGE) 1 EACH SPONGE TOPICAL ONE (14:02)
--- NOTE | 2023-03-12 15:21 | P.OP ---
Date of Procedure: 03/12/23 Preoperative Diagnosis: M50.122 Cervical disc disorder at C5-C6 level with radiculopathy M50.322 Other cervical disc degeneration at C5-C6 level M62.521 Muscle wasting and atrophy, not elsewhere classified, right upper arm m54.2 Cervicalgia Postoperative Diagnosis: M50.122 Cervical disc disorder at C5-C6 level with radiculopathy M50.322 Other cervical disc degeneration at C5-C6 level M62.521 Muscle wasting and atrophy, not elsewhere classified, right upper arm m54.2 Cervicalgia Procedure(s) Performed: Total disc arthroplasty (artificial disc), anterior approach, including discectomy with end plate preparation (includes osteophytectomy for nerve root or spinal cord decompression and microdissection); single interspace, cervical 5-6 USE OF IONM USE OF IO MICROSCOPE Implants: PRO DISC C: 6 mm XL IMPLANT x1 Anesthesia: LUISA Surgeon: Andi Zamarripa Gang Pusher #1: Jay Ware (was present and assisted with all aspects of the case from position to closure) Estimated Blood Loss (ml): 20 IV fluids (ml): 1,200 Urine output (ml): 0 Pathology: none sent Condition: stable Disposition: PACU Indications for Procedure: Mr. Morataya is presenting for evaluation of neck and right upper extremity pain, right upper extremity numbness, tingling, and weakness. It was my pleasure to have seen and examined Mr. Morataya. In our visit today we have had a chance to go over subjective complaints, physical examination findings and treatments including the natural course history without intervention and various interventional options. The patients imaging demonstrates: XRay Cervical multiview was taken at [facility] on 11/13/22 of Cervical Spine: Re-reviewed with the patient in office today. there is reviewed demonstrate C6 to 7 spondylosis with severe collapse. There is trace anterolisthesis C5 on C6. Overall alignment is fairly well maintained mild facet arthrosis noted. No fracture no dislocation occipital cervical C1 2 joints appear stable MRI [facility]completed at [facility] from10/31/2022 of Cervical Spine: Re-reviewed with the patient in office today. images reviewed demonstrate spondylosis C5 6 C6 7 with large disc herniation at C5-C6 causing severe foraminal stenosis as well as central stenosis bilaterally. There is a small amount of myomalacia which is started at this level due to contact with the cord of the disc herniation. There is cord draping over the large disc herniation at this level as well. No other fractures or dislocations noted On physical exam, Mr. Morataya demonstrates: A continued dull, ache-like pain throughout the neck that radiates down into the right upper extremity. The patient states that their right arm pain is associated with numbness and tingling. The patient notes pain, numbness, and tingling throughout the thumb and index finger of the right hand. The patient notes an intermittent sharp, shooting pain throughout the right upper extremity with any overhead activity. The patient states that their neck pain is exacerbated by prolonged activity. The patient reports experiencing moderate to severe sleep disturbances related to her ongoing pain and associated symptoms. I have explained to the patient that as their condition progresses it will cause further neurological deficits and eventual paralysis. Based on the patients imaging, physical exam, and the rapid progression and disabling nature of their symptoms, at this time I recommend surgery in the form of a: C5-6 total disc replacement. I discussed the risk and benefits of this procedure at length with Mr. Morataya. The patient agreed to considered pursuing the procedure abovementioned. Prior to surgery, she should follow up with her PCP (Cardio, ID, IM etc) for clearance. Questions were invited and answered, and the patient wishes to proceed as outlined below. Currently, I am recommendin.C5-6 total disc replacement Description of Procedure: C5-6 TDR The patient was seen and examined in the preoperative area. All preoperative protocols were followed. Informed consent was obtained, risks and benefits of the procedure were discussed at length. Risks including bleeding infection damage to the surrounding tissue and risk of reoperation were discussed with the patient. Risk of anesthesia up to and including was discussed with the patient. These are outlined in the risk review. They were willing to accept these risks and all the risks of surgery. The patient was given a weight-based dose of antibiotics in the form of 2 g Ancef. The patient was seen and evaluated by the anesthesia team who deemed them fit for surgery. The site was marked, the patient was willing to proceed with the procedure. The patient was transferred to the operative suite by the Department of anesthesia. They were then drifted off to sleep by the department anesthesia and GETA was performed. The patient tolerated this well. Anderson catheter was placed by nursing staff, a-traumatically. Once confirmation of lines and ventilation the patient was transferred to a Supine Lonnie table very carefully. All bony prominences including wrists, elbows, axilla, chest, hips, and thighs, and feet were padded very well. Special attention was paid to the genitalia, and these were padded accordingly. SCDs were placed on bilateral lower extremities and were connected. Arms were well padded and placed at their side thumbs up. Shoulder roll was placed and shoulders were gently taped to the table. Once in position, again we confirmed good ventilation capabilities and that lines were running appropriately. The patients Cervical spine was then exposed. 1010s were placed outlining the incision site. Standard alcohol was used to clean the incision site and allowed to dry. C-arm was used to bio-felipe the patient and confirm level for incision which was marked with a skin marker. Operative briefing was performed with all teams and everyone in agreement to proceed. The patient was then prepped and draped in a normal sterile fashion. Timeout was then performed, and all parties agreed with the procedure to be performed. Transverse skin incision was then made on the right side of the patient's neck 3 cm and dissection taken down to the platysma which was split transversely. Sub platysma flap was made, and interval identified between SCM and medial structures. Omohyoid was visualized and protected. Blunt dissection taken down to the anterior cervical fascia which was identified. Blunt probe was then placed and lateral image taken which confirmed levels for operation. These levels were then marked with a bovi. Subperiosteal dissection of the longissimus muscles were then done over these levels identifying uncovertebral joints bilaterally. Retractor was then placed deep to these muscles and held in place with a bed arm. Carefree pins were placed into C5 and C6 and gentle parallel distraction taken out over the levels. Joao rongeur used to remove disc material. Operating microscope brought in for visualization. Complete discectomy performed at this level with curette, rongeur and pituitary. High speed shaneka used to remove osteophytes anteriorly and posteriorly until PLL was identified. 6-0 up curette then used to identify the canal and resect the PLL. 2-0 and 3-0 Kerrison used then to remove PLL and disc herniation and performed b/l foraminotomies. Once good decompression was accomplished, meticulous hemostasis was performed. Sizers were then placed under lateral fluoroscopy until the desired height and alignment. A 6 mm XL trial was then placed and secured. Distraction removed for cuts. AP and lateral image confirmed central placement. Chisel was then sent over the trial to create the keel cuts. Trial was then removed and gentle distraction placed again. Further clean up of the endplates done as well as foramen and decompression. Disc space was irrigated thoroughly. Final implant was then placed under lateral image to match the keel cuts and was placed optimally on AP and lateral imaging. Once in place the implant was tested and was secured. Motors run before and after implant placement were stable. The wound bed was irrigated. Distraction pins removed and bone wax placed in their void. Bone wax placed on any bleeding bony surfaces. Surgicel then placed deep in the wound and retractors removed after inspection without injury. Final AP and lateral images confirmed good placement of implant with good height and alignment lutheran. The wound was then irrigated copiously with NSS. Surgicel placed deep in the wound. Layered closure then performed with 3-0 Vicryl in the platysma and subQ tissue. 4-0 Strata fix in the subcuticular tissue. The wound was then cleaned, and dried and skin glue placed. Once glue dried an Opifoam was placed. The patient was then transferred back to their hospital bed a-traumatically. The drain continued to hold suction. They were placed in a soft collar. They were then awakened by the department of anesthesia having tolerated the procedure well without complications.
[2023-03-12] MEDS ORDERED: MAGNESIUM HYDROXIDE 2,400 MG/30 ML CUP PO PRN (15:29)
[2023-03-12] MEDS ORDERED: HYDROmorphone 1 MG/ML 1 ML SYRINGE IVP PRN (15:29)
[2023-03-12] MEDS ORDERED: CYCLOBENZAPRINE 5 MG TAB PO PRN (15:29)
[2023-03-12] MEDS ORDERED: HYDROcodone/APAP 5-325MG 1 EACH TAB PO PRN (15:29)
[2023-03-12] MEDS ORDERED: HYDROcodone/APAP 10-325MG 1 EACH TAB PO PRN (15:29)
[2023-03-12] MEDS ORDERED: HYDROmorphone 0.5 MG/0.5 ML SYRINGE IVP PRN (15:29)
[2023-03-12] MEDS ORDERED: SENNOSIDES-DOCUSATE SODIUM 1 EACH TAB PO PRN (15:29)
--- NOTE | 2023-03-12 15:31 | XR ---
EXAMINATION TYPE: XR cervical spine limited DATE OF EXAM: 03/12/2023 COMPARISON: NONE HISTORY: Intraoperative localization TECHNIQUE: 8 views are submitted FINDINGS: Surgical instrument is seen at multiple levels as part of an intraoperative localization. E T tube is suggested. Resolution diminished. Subsequent disc spacer noted. IMPRESSION: Intraoperative findings.
[2023-03-12 15:56] VITALS: TEMP 96.8
[2023-03-12 16:20] VITALS: RESP 16
[2023-03-12 17:06] VITALS: BP 143/95; PULSE 109
[2023-03-12] MEDS ORDERED: ACETAMINOPHEN TAB 325 MG TAB PO SCH (18:00)
== END 2023-03-12 17:11 | disposition home or self-care (01) ==
LOC: OR 10:47
PROVIDERS: ATTEND Orthopaedic Surgery
DX: M50.122 Cervical disc disorder at C5-C6 level with radiculopathy (principal); M50.322 Other cervical disc degeneration at C5-C6 level; M62.521 Muscle wasting and atrophy, not elsewhere classified, right upper arm; Z82.49 Family history of ischemic heart disease and other diseases of the circulatory system; F17.210 Nicotine dependence, cigarettes, uncomplicated; F12.90 Cannabis use, unspecified, uncomplicated; I10 Essential (primary) hypertension; E78.5 Hyperlipidemia, unspecified; K21.9 Gastro-esophageal reflux disease without esophagitis; F41.9 Anxiety disorder, unspecified; F32.A Depression, unspecified; Z98.890 Other specified postprocedural states; Z79.82 Long term (current) use of aspirin; Z79.899 Other long term (current) drug therapy
CPT/HCPCS: 72040; 22856; C1713; J2250; J0330; J1100; J2710; J0690; J2405; J2001; J3010; J2704

== ENCOUNTER → 2024-01-13 | Outpatient (CLI) | payer OTHER ==
[2024-01-13 16:07] LABS: Basophils # (A) 0.07 X 10*3/uL (0.00-0.10); Basophils % (A) 0.7 %; Eosinophils # (A) 0.08 X 10*3/uL (0.04-0.35); Eosinophils % (A) 0.8 %; HCT 45.6 % (39.6-50.0); Lymphocytes % (A) 27.4 %; MCHC 32.9 g/dL (32.0-37.0); MCV 100.2 FL (80.0-97.0); Mean Platelet Volume 9.9 FL (9.5-12.2); Monocytes # (A) 0.62 X 10*3/uL (0.20-1.00); Monocytes % (A) 6.3 %; NRBC Per 100 WBC 0 X 10*3/uL (0.00-0.01); Neutrophils # (A) 6.33 X 10*3/uL (1.80-7.70); Neutrophils % (A) 64.1 %; Platelet Count 381 X 10*3/uL (140-440); RBC 4.55 X 10*6/uL (4.40-5.60); RDW 14.5 % (11.5-14.5); WBC 9.87 X 10*3/uL (4.50-10.00)
[2024-01-13 17:17] LABS: ALT 36 U/L (10-49); AST 31 U/L (14-35); Albumin 4.5 g/dL (3.8-4.9); Alkaline Phosphatase 165 U/L (41-126); BUN/Creat Ratio 9.71 Ratio (12.00-20.00); Blood Urea Nitrogen 6.8 mg/dL (9.0-27.0); Calcium 9.6 mg/dL (8.7-10.3); Carbon Dioxide 22.5 mmol/L (21.6-31.8); Chloride 103 mmol/L (96-109); Chol/HDL Ratio 6.15 Ratio; Globulin 2.5 g/dL (1.6-3.3); Glucose 92 mg/dL (70-110); LDL Cholesterol,Calculated 138.6 mg/dL (0.0-131.0); PSA Annual Screen 0.479 ng/mL (0.000-4.000); Potassium 4.4 mmol/L (3.5-5.5); Sodium 140 mmol/L (135-145); Total Bilirubin 0.3 mg/dL (0.3-1.2)
== END | disposition home or self-care (01) ==
LOC: LABWHC1 11:59
PROVIDERS: ATTEND Family Medicine
CPT/HCPCS: 36415; 80053; 80061; 82306; 83036; 84443; 85025

== ENCOUNTER → 2024-07-13 | Outpatient (CLI) | payer OTHER ==
[2024-07-13 15:03] LABS: Basophils # (A) 0.05 X 10*3/uL (0.00-0.10); Basophils % (A) 0.6 %; Eosinophils # (A) 0.12 X 10*3/uL (0.04-0.35); Eosinophils % (A) 1.3 %; HCT 45.4 % (39.6-50.0); HGB 14.9 g/dL (13.0-17.0); Lymphocytes # (A) 2.43 X 10*3/uL (0.90-5.00); Lymphocytes % (A) 26.8 %; MCH 32.3 pg (27.0-32.0); MCHC 32.8 g/dL (32.0-37.0); MCV 98.5 FL (80.0-97.0); Mean Platelet Volume 9.9 FL (9.5-12.2); Monocytes # (A) 0.45 X 10*3/uL (0.20-1.00); NRBC Per 100 WBC 0 X 10*3/uL (0.00-0.01); Neutrophils # (A) 5.96 X 10*3/uL (1.80-7.70); Neutrophils % (A) 65.5 %; Platelet Count 332 X 10*3/uL (140-440); RBC 4.61 X 10*6/uL (4.40-5.60); RDW 14.3 % (11.5-14.5); WBC 9.08 X 10*3/uL (4.50-10.00)
[2024-07-13 15:43] LABS: ALT 57 U/L (10-49); AST 55 U/L (14-35); Albumin 4.5 g/dL (3.8-4.9); Albumin/Globulin Ratio 1.73 Ratio (1.60-3.17); Alkaline Phosphatase 161 U/L (41-126); BUN/Creat Ratio 12.12 Ratio (12.00-20.00); Blood Urea Nitrogen 9.7 mg/dL (9.0-27.0); Calcium 9.8 mg/dL (8.7-10.3); Carbon Dioxide 23.1 mmol/L (21.6-31.8); Chloride 103 mmol/L (96-109); Globulin 2.6 g/dL (1.6-3.3); Glucose 90 mg/dL (70-110); Potassium 4.6 mmol/L (3.5-5.5); Sodium 141 mmol/L (135-145); Total Bilirubin 0.3 mg/dL (0.3-1.2); Total Protein 7.1 g/dL (6.2-8.2)
== END | disposition home or self-care (01) ==
LOC: LABWHC1 11:44
PROVIDERS: ATTEND Family Medicine
DX: I10 Essential (primary) hypertension (principal); E55.9 Vitamin D deficiency, unspecified; K59.01 Slow transit constipation
CPT/HCPCS: 36415; 80053; 82306; 82607; 82747; 84443; 85025